=== PATIENT | male | born 1970 | race Caucasian/White ===

== ENCOUNTER 2022-10-28 10:51 | Emergency (ER) | payer OTHER, SELFPAY ==
[2022-10-28 10:54] VITALS: BP 143/85; PULSE 68; RESP 18; TEMP 36.8; O2SAT 98; BMI 27.7
--- NOTE | 2022-10-28 11:27 | ED_ITS ---
HPI - Abdominal Pain General Chief Complaint: Abdominal Pain Stated Complaint: ABD PAIN VOMITING Time Seen by Provider: 10/28/22 11:25 Source: patient Mode of arrival: walk-in Limitations: no limitations History of Present Illness HPI narrative: Patient presents to emergency department complaining of constipation. Patient's last bowel movement was on . He states he has changed his diet to eating junk food and has not been drinking enough water. He did not have a bowel movement but he is passing gas. So he started taking MiraLAX yesterday. His taken 3 doses and is passing gas but has not had any relief. He states he was at work and keep one time so they sent him to the emergency department for evaluation. Patient denies any fever, chills, cough, chest, shortness of breath. He denies any abdominal pain. He has not tried any suppositories. He denies any flank pain, hematuria, dysuria. Related Data Home Medications Medication Instructions Recorded Confirmed buprenorphine 8 mg-naloxone 2 mg 1 tab sublingual DAILY 10/28/22 10/28/22 sublingual tablet Allergies Allergy/AdvReac Type Severity Reaction Status Date / Time No Known Drug Allergies Allergy Verified 10/28/22 10:58 Review of Systems ROS Status of ROS 10 or more systems reviewed and unremarkable except as noted in history and below Exam Narrative Exam Narrative: Nurses notes and vital signs reviewed and patient is not hypoxic. General: Nontoxic, Well-appearing and in no apparent distress. Skin: Warm, dry, no pallor noted. No Rash Head: Normocephalic, atraumatic. Neck: Supple, non-tender. Eye: Pupils are equal, round and EOMI. No scleral icterus. Ears, Nose, Mouth, and Throat: TM clear, no posterior oropharynx erythema or nasal mucosal hypertrophy, uvula is mid-line Oral mucosa is moist Cardiovascular: Regular Rate and Rhythm without murmur, gallop or rub. Respiratory: No accessory muscle use or respiratory distress. Lungs are clear to auscultation, no wheezing, rales or rhonchi Chest Wall: no tenderness Back: No midline thoracic or lumbar vertebral tenderness. No CVA tenderness Musculoskeletal: normal ROM, no calf or popliteal tenderness, no lower extremity edema/swelling GI: Abdomen is soft, non-distended. Normal bowel sounds. No masses appreciated. No tenderness to palpation. No rebound, guarding, or rigidity noted. Neurological: A&O x4. No cranial nerve dysfunction observed. No truncal ataxia. Moves all extremities. Sensation intact. Psychiatric: Cooperative and interactive. Normal mood and affect. Constitutional Vital Signs, click to edit/add: Last Vital Signs Temp 98.2 F 10/28/22 10:54 Pulse 68 10/28/22 10:54 Resp 18 10/28/22 10:54 BP 143/85 H 10/28/22 10:54 Pulse Ox 98 10/28/22 10:54 O2 Del Method Room Air 10/28/22 10:54 Course Vital Signs Vital signs: Vital Signs Temperature 98.2 F 10/28/22 10:54 Pulse Rate 68 10/28/22 10:54 Respiratory Rate 18 10/28/22 10:54 Blood Pressure 143/85 H 10/28/22 10:54 Pulse Oximetry 98 10/28/22 10:54 Oxygen Delivery Method Room Air 10/28/22 10:54 Temperature 98.2 F 10/28/22 10:54 Pulse Rate 68 10/28/22 10:54 Respiratory Rate 18 10/28/22 10:54 Blood Pressure 143/85 H 10/28/22 10:54 Pulse Oximetry 98 10/28/22 10:54 Oxygen Delivery Method Room Air 10/28/22 10:54 MDM - Abdominal Pain MDM Narrative Medical decision making narrative: Discussed with patient to continue MiraLAX. He is to take Dulcolax and use a suppository. He states that he wouldn't do that at home. He is declining an suppository or enema in the emergency department. Patient is given mag citrate to take at home. He states he will go and buy some suppositories and primary home. Patient's abdomen is benign and nonsurgical. He is stable for outpatient follow-up and treatment. X-ray reviewed. At this time the patient is without objective evidence of an acute process requiring hospitalization or inpatient management. The patient has remained hem odynamically stable. No additional indication for emergent studies at this time. I answered all questions. Discussed discharge instructions including standard anticipatory guidance and what should prompt a return to the emergency department, including if they get worse are not getting better or develops any new or concerning symptoms. I've given them specific time frame in which to follow-up, and who to follow-up with. The patient demonstrates understanding. Patient is nontoxic and stable for discharge with outpatient follow-up. This note was created with the assistance of a speech recognition program. Although the intention is to generate documents that actually reflects the content of the visit, no guarantees can be provided that every mistake has been identified and corrected by editing. Differential Diagnosis Differential diagnosis: Likely constipation and small bowel obstruction Discharge Plan Discharge Chief Complaint: Abdominal Pain Clinical Impression: Constipation Patient Disposition: Home, Self-Care Time of Disposition Decision: 11:53 Condition: Good Mode of Transportation: Private Vehicle Prescriptions / Home Meds: No Action buprenorphine-naloxone 8-2 mg tablet, sublingual 1 tab SUBLINGUAL DAILY Instructions: Constipation (ED) Stand Alone Forms: Portal Instructions Referrals: Physician,Non-Staff, MD [Primary Care Provider] - 1 week Discharge Date/Time: 10/28/22 12:07
--- NOTE | 2022-10-28 11:35 | XR_ITS ---
The [address] [address] Patient Name: SANDRINE BURTON MRN: [id number] date: 1970 Sex: M Assigned Patient Location: ED.MAIN Current Patient Location: ED.MAIN Accession/Order Number: [id number] Exam Date: 10/28/2022 11:25 Report Date: 10/28/2022 11:57 At the request of: OSORIO BRAVO Procedure: XR acute abdomen series EXAMINATION: XR acute abdomen series HISTORY: constipation COMPARISON: 08/12/2021 FINDINGS: LUNGS: No infiltrate, pneumothorax, or pleural effusion. MEDIASTINUM: No abnormal widening. BOWEL GAS PATTERN: Non-obstructed. Moderate amount of stool within the colon FREE AIR: None. CALCIFICATIONS: None significant. BONES: No fracture or visible bone lesion. OTHER: Negative. XR/XR acute abdomen series IMPRESSION: Clear lungs Moderate stool in the colon Electronically authenticated by: SANDRINE MURRAY Date: 10/28/2022 11:57
[2022-10-28] MEDS: MAGNESIUM CITRATE 296 ML SOLUTION PO (11:59)
== END 2022-10-28 12:07 | disposition home or self-care (01) ==
PROVIDERS: Emergency Provider Emergency Medicine
DX: K59.00 Constipation, unspecified (principal)
CPT/HCPCS: 74022; 99283

== ENCOUNTER 2022-12-08 20:10 | Emergency (ER) | payer OTHER, SELFPAY ==
[2022-12-08 20:14] VITALS: BP 128/84; PULSE 68; RESP 18; TEMP 36.7; O2SAT 99
--- NOTE | 2022-12-08 20:27 | ED.SKABFB1 ---
HPI - Skin/Abscess/Foreign Bdy General Chief complaint: Skin/Abscess/Foreign Body Stated complaint: RASH Time Seen by Provider: 12/08/22 20:17 Source: patient Mode of arrival: walk-in Limitations: no limitations History of Present Illness HPI narrative: patient states allergy to poison sumac. was exposed this weekend while cutting grass. Rash started on his feet and ankles and has spread to his legs and even his back. Similar reaction in the past. No dyspnea or fever or joint swelling MD complaint: Reports rash Related Data Home Medications Medication Instructions Recorded Confirmed buprenorphine 8 mg-naloxone 2 mg 1 tab sublingual DAILY 10/28/22 10/28/22 sublingual tablet Allergies Allergy/AdvReac Type Severity Reaction Status Date / Time No Known Drug Allergies Allergy Verified 10/28/22 10:58 Review of Systems ROS Status of ROS 10 or more systems reviewed and unremarkable except as noted in history and below Exam Constitutional Vital Signs, click to edit/add: Last Vital Signs Temp 98.1 F 12/08/22 20:14 Pulse 68 12/08/22 20:14 Resp 18 12/08/22 20:14 BP 128/84 12/08/22 20:14 Pulse Ox 99 12/08/22 20:14 Common normals: no apparent distress, average body habitus, oriented x3, no limitations, healthy appearing, alert and well nourished Eye Common normals: PERRL, EOMs intact bilaterally and conjunctivae normal Respiratory Common normals: normal respiratory effort, no retractions and no use of accessory muscles Cardio Common normals: regular rate, regular rhythm, S1 normal heart sound and S2 normal heart sound GI Common normals: Normal to inspection, nondistended, normoactive bowel sounds present Extremity Other: diffuse faintly erythematous 1cm papular lesions mild distribution on his lower extremities. More concentrated about his ankles Neuro Common normals: oriented x3, CN's II-XII intact bilaterally, moves all extremities and no focal motor deficits Psych Appearance: grossly normal Course Vital Signs Vital signs: Vital Signs Temperature 98.1 F 12/08/22 20:14 Pulse Rate 68 12/08/22 20:14 Respiratory Rate 18 12/08/22 20:14 Blood Pressure 128/84 12/08/22 20:14 Pulse Oximetry 99 12/08/22 20:14 Temperature 98.1 F 12/08/22 20:14 Pulse Rate 68 12/08/22 20:14 Respiratory Rate 18 12/08/22 20:14 Blood Pressure 128/84 12/08/22 20:14 Pulse Oximetry 99 12/08/22 20:14 MDM - Skin/Abscess/Foreign Bdy MDM Narrative Medical decision making narrative: patient presents with contact dermatitis after exposure to poison sumac to which he does have past allergic reaction. No difficulty breathing or throat tightness. No fever. Similar reaction to poison sumac in the past. Treated with IM solumedrol and discharged home with a prescription for prednisone Discharge Plan Discharge Chief Complaint: Skin/Abscess/Foreign Body Clinical Impression: Contact dermatitis Patient Disposition: Home, Self-Care Prescriptions / Home Meds: No Action buprenorphine-naloxone 8-2 mg tablet, sublingual 1 tab SUBLINGUAL DAILY Instructions: Contact Dermatitis (ED) Additional Instructions: follow up with your doctor in 3-4 days for recheck Stand Alone Forms: Portal Instructions Referrals: Physician,Non-Staff, MD [Primary Care Provider] - 1 week
[2022-12-08] MEDS: METHYLPREDNISOLONE SOD SUCC PF 125 MG/2 ML VIAL IM (20:39)
== END 2022-12-08 20:46 | disposition home or self-care (01) ==
PROVIDERS: Emergency Provider Internal Medicine
DX: L23.7 Allergic contact dermatitis due to plants, except food (principal)
CPT/HCPCS: 96372; 99284; J2930

== ENCOUNTER 2023-01-06 08:14 | Emergency (ER) | payer OTHER, SELFPAY ==
[2023-01-06 08:19] VITALS: BP 133/79; PULSE 59; RESP 20; TEMP 36.7; O2SAT 99; BMI 28.4
--- NOTE | 2023-01-06 08:31 | ED_ITS ---
HPI - General Adult General Chief complaint: Upper Respiratory Infection Stated complaint: FLU LIKE SYMPTOMS Time Seen by Provider: 01/06/23 08:28 Mode of arrival: walk-in History of Present Illness HPI narrative: 52-year-old male presents for a 5-6 day history of cough. He is coughing up yellow phlegm. He took a home Covid test which was negative. He's had body aches all over. he's not had repetitive vomiting and has had no diarrhea. Related Data Home Medications Medication Instructions Recorded Confirmed buprenorphine 8 mg-naloxone 2 mg 1 tab sublingual DAILY 10/28/22 10/28/22 sublingual tablet Previous Rx's Medication Instructions Recorded azithromycin 250 mg tablet See Rx Instructions PO .COMPLEX #6 01/06/23 (Zithromax Z-Jonathan) tabs Allergies Allergy/AdvReac Type Severity Reaction Status Date / Time No Known Drug Allergies Allergy Verified 01/06/23 08:24 Review of Systems ROS Narrative A ten point review of systems is negative except as noted above. PFSH PFSH Social History Smoking status: Current every day smoker Exam Narrative Exam Narrative: Nurses note and vital signs reviewed and patient is not hypoxic. General: The patient appears well and in no apparent distress. Patient is resting comfortably on cart. Skin: Warm, dry, no pallor noted. There is no rash noted. Head: Normocephalic, atraumatic Eye: Normal conjunctiva, no drainage Ears, Nose, Mouth, and Throat: oral mucosa is moist. Nares patent. Cardiovascular: Regular Rate and Rhythm Respiratory: Patient is in no distress, no accessory muscle use, lungs are clear to auscultation, no wheezing, rales or rhonchi Back: non-tender GI: soft and nontender Musculoskeletal: The patient has no evidence of calf tenderness, no pitting edema, symmetrical pulses noted bilaterally Neurological: A&O, normal speech Psychiatric: Cooperative Constitutional Vital Signs, click to edit/add: Last Vital Signs Temp 98.1 F 01/06/23 08:19 Pulse 59 L 01/06/23 08:19 Resp 20 01/06/23 08:19 BP 133/79 01/06/23 08:19 Pulse Ox 99 01/06/23 08:19 O2 Del Method Room Air 01/06/23 08:19 Course Vital Signs Vital signs: Vital Signs Temperature 98.1 F 01/06/23 08:19 Pulse Rate 59 L 01/06/23 08:19 Respiratory Rate 20 01/06/23 08:19 Blood Pressure 133/79 01/06/23 08:19 Pulse Oximetry 99 01/06/23 08:19 Oxygen Delivery Method Room Air 01/06/23 08:19 Temperature 98.1 F 01/06/23 08:19 Pulse Rate 59 L 01/06/23 08:19 Respiratory Rate 20 01/06/23 08:19 Blood Pressure 133/79 01/06/23 08:19 Pulse Oximetry 99 01/06/23 08:19 Oxygen Delivery Method Room Air 01/06/23 08:19 Medical Decision Making MDM Narrative Medical decision making narrative: his workup including chest x-ray and Covid test is negative. He is able to be discharged home. Treatment diagnosis and follow-up were discussed with the patient. Differential Diagnosis Differential Diagnosis: Covid, pneumonia, upper respiratory infection Lab Data Lab results reviewed: Yes I reviewed the patient's lab results Labs: Lab Results 01/06/23 01/06/23 Range/Units 08:39 08:40 WBC 6.5 (4.0-11.0) 10^3/uL RBC 4.42 L (4.70-6.10) 10^6/uL Hgb 13.5 L (14.0-18.0) g/dL Hct 39.0 L (42.0-54.0) % MCV 88.2 (80.0-94.0) fL MCH 30.5 (25.9-34.0) pg MCHC 34.6 (29.9-35.2) g/dL RDW 12.0 (11.0-15.0) % Plt Count 214 (150-450) 10^3/uL MPV 10.1 (9.5-13.5) fL Neut % (Auto) 56.3 (43.0-75.0) % Lymph % (Auto) 31.5 (20.5-60.0) % [place] % (Auto) 7.5 (1.7-12.0) % Eos % (Auto) 3.7 (0.9-7.0) % Baso % (Auto) 0.5 (0.2-2.0) % Neut # (Auto) 3.7 (1.4-6.5) 10^3/uL Lymph # (Auto) 2.1 (1.2-3.8) 10^3/uL [place] # (Auto) 0.5 (0.3-0.8) 10^3/uL Eos # (Auto) 0.2 (0.0-0.7) 10^3/uL Baso # (Auto) 0.0 (0.0-0.1) 10^3/uL Abs Immat Gran (auto) 0.03 (0.00-0.03) 10^3/uL Imm/Tot Granulo (auto) 0.5 (0.0-0.5) % Sodium 139 (136-145) mmol/L Potassium 3.6 (3.5-5.1) mmol/L Chloride 104 (98-107) mmol/L Carbon Dioxide 23.9 (21.0-32.0) mmol/L Anion Gap 14.7 BUN 19.0 H (7.0-18.0) mg/dL Creatinine 1.19 (0.70-1.30) mg/dL Est GFR ( Amer) >60 (>=60) Est GFR (Non-Af Amer) >60 (>=60) BUN/Creatinine Ratio 16.0 Glucose 154 H (74-106) mg/dL Calcium 8.5 (8.5-10.1) mg/dL SARS-CoV-2 (PCR) Negative (NEGATIVE) Imaging Data Chest x-ray: Radiologist's impression: no acute findings Discharge Plan Discharge Chief Complaint: Upper Respiratory Infection Clinical Impression: Upper respiratory infection Patient Disposition: Home, Self-Care Time of Disposition Decision: 10:23 Condition: Good Mode of Transportation: Private Vehicle Prescriptions / Home Meds: New azithromycin [Zithromax Z-Jonathan] 250 mg tablet See Rx Instructions .ROUTE .COMPLEX Qty: 6 0RF Rx Instructions: For 250 mg dose pack: take 500 mg today (day 1), then 250 mg for 4 days (days 2-5) No Action buprenorphine-naloxone 8-2 mg tablet, sublingual 1 tab SUBLINGUAL DAILY Instructions: Upper Respiratory Infection (ED) Stand Alone Forms: Portal Instructions Referrals: Physician,Non-Staff, MD [Primary Care Provider] - 1 week
--- NOTE | 2023-01-06 08:45 | XR_ITS ---
The [address] [address] Patient Name: SANDRINE BURTON MRN: [id number] date: 1970 Sex: M Assigned Patient Location: ER Current Patient Location: ER Accession/Order Number: [id number] Exam Date: 01/06/2023 08:40 Report Date: 01/06/2023 09:04 At the request of: ANNIA SINGH Procedure: XR chest 1V EXAM: XR chest 1V HISTORY: . cough . COMPARISON: None. TECHNIQUE: Single view of the chest FINDINGS: Heart and vascularity are unremarkable. Lungs are free of focal infiltrates. Costophrenic angles were excluded on today's exam. Old healed rib fractures are noted on the right. XR/XR chest 1V IMPRESSION: No acute heart or lung disease identified. Electronically authenticated by: SANDRINE LOPEZ Date: 01/06/2023 09:04
[2023-01-06 08:54] LABS: Basophils Percent Auto 0.5 % (0.2-2.0); Eosinophils Absolute Auto 0.2 10^3/uL (0.0-0.7); Eosinophils Percent Auto 3.7 % (0.9-7.0); Hemoglobin 13.5 g/dL (14.0-18.0); Immature Granulocytes Abs Auto 0.03 10^3/uL (0.00-0.03); Immature Granulocytes Pct Auto 0.5 % (0.0-0.5); Lymphocytes Absolute Auto 2.1 10^3/uL (1.2-3.8); Lymphocytes Percent Auto 31.5 % (20.5-60.0); Mean Corpuscular HGB Conc 34.6 g/dL (29.9-35.2); Mean Corpuscular Hemoglobin 30.5 pg (25.9-34.0); Mean Corpuscular Volume 88.2 fL (80.0-94.0); Mean Platelet Volume 10.1 fL (9.5-13.5); Monocytes Absolute Auto 0.5 10^3/uL (0.3-0.8); Monocytes Percent Auto 7.5 % (1.7-12.0); Neutrophils Absolute Auto 3.7 10^3/uL (1.4-6.5); Neutrophils Percent Auto 56.3 % (43.0-75.0); Platelet Count 214 10^3/uL (150-450); Red Blood Count 4.42 10^6/uL (4.70-6.10); White Blood Count 6.5 10^3/uL (4.0-11.0)
[2023-01-06 09:23] LABS: Anion Gap 14.7; Calcium 8.5 mg/dL (8.5-10.1); Carbon Dioxide 23.9 mmol/L (21.0-32.0); Chloride 104 mmol/L (98-107); Estimated GFR (African America >60 (>=60); Estimated GFR (Non-African Ame >60 (>=60); Glucose 154 mg/dL (74-106); Potassium 3.6 mmol/L (3.5-5.1); Sodium 139 mmol/L (136-145)
[2023-01-06 10:16] LABS: SARS-CoV-2 Ag NEGATIVE (NEGATIVE)
[2023-01-06 15:09] LABS: SARS-CoV-2 NAA NOT DETECTED (NOT DETECTE)
== END 2023-01-06 10:32 | disposition home or self-care (01) ==
PROVIDERS: Emergency Provider Emergency Medicine
DX: J06.9 Acute upper respiratory infection, unspecified (principal); F17.210 Nicotine dependence, cigarettes, uncomplicated
CPT/HCPCS: 36415; 71045; 80048; 85025; 87635; 87811; 99284; U0003

== ENCOUNTER 2023-06-27 23:07 | Emergency (ER) | payer OTHER, SELFPAY ==
[2023-06-27 23:10] VITALS: BP 153/102; PULSE 71; RESP 18; TEMP 36.8; O2SAT 97; BMI 29.5
[2023-06-27 23:15] VITALS: PULSE 66
--- NOTE | 2023-06-27 23:23 | PC.NURSE ---
Pain left chest under left axilla.
--- NOTE | 2023-06-27 23:24 | ED.CHESTPAI1 ---
HPI - Chest Pain General Chief Complaint: Chest Pain Stated Complaint: chest pain Time Seen by Provider: 06/27/23 23:11 Source: patient Mode of arrival: walk-in Limitations: no limitations History of Present Illness HPI narrative: presents complaining of chest pain on and off over the past couple of hours. mid axillary chest pain. Daily smoker and also history of cocaine use. last use of cocaine yesterday. No associated nausea or vomiting. Became concerned tonight because the pain would not let up. It is now easing up. states level 4/10. Under increased stress as his mother is ill Related Data Home Medications ?Medication ?Instructions ?Recorded ?Confirmed buprenorphine 8 mg-naloxone 2 mg 1 tab sublingual DAILY 10/28/22 06/27/23 sublingual tablet Allergies Allergy/AdvReac Type Severity Reaction Status Date / Time No Known Drug Allergies Allergy Verified 06/27/23 23:14 Review of Systems ROS Status of ROS 10 or more systems reviewed and unremarkable except as noted in history and below [facility] Social History Smoking status: Current every day smoker Exam Constitutional Vital Signs, click to edit/add: Last Vital Signs Temp 98.3 F 06/27/23 23:10 Pulse 63 06/28/23 02:11 Resp 14 06/28/23 02:11 BP 97/53 06/28/23 02:11 Pulse Ox 95 06/28/23 02:11 O2 Del Method Room Air 06/28/23 02:11 Common normals: no apparent distress, average body habitus, oriented x3, no limitations, healthy appearing, alert and well nourished [facility] Common normals: normocephalic and head/scalp atraumatic Eye Common normals: PERRL, EOMs intact bilaterally and conjunctivae normal Respiratory Common normals: normal respiratory effort, no retractions, no use of accessory muscles and clear to auscultation bilaterally Cardio Common normals: regular rate, regular rhythm, S1 normal heart sound and S2 normal heart sound GI Common normals: Normal to inspection, nondistended, normoactive bowel sounds present, soft to palpation and non-tender Extremity Common normals: normal to inspection and full ROM Neuro Common normals: oriented x3, CN's II-XII intact bilaterally, moves all extremities and no focal motor deficits Psych Appearance: grossly normal Course Vital Signs Vital signs: Vital Signs Temperature 98.3 F 06/27/23 23:10 Pulse Rate 71 06/27/23 23:10 Respiratory Rate 18 06/27/23 23:10 Blood Pressure 153/102 H 06/27/23 23:10 Pulse Oximetry 97 06/27/23 23:10 Oxygen Delivery Method Room Air 06/27/23 23:10 Temperature 98.3 F 06/27/23 23:10 Pulse Rate 63 06/28/23 02:11 Respiratory Rate 14 06/28/23 02:11 Blood Pressure 97/53 06/28/23 02:11 Pulse Oximetry 95 06/28/23 02:11 Oxygen Delivery Method Room Air 06/28/23 02:11 MDM - Chest Pain MDM Narrative Medical decision making narrative: patient presents with complaint of chest pain left midaxillary. sharp stabbing pain. no associated nausea or dyspnea. EKG without acute changes. Serial troponin and d-dimer neg. Patient advised to follow up with his doctor for recheck in 2-3 days. He is to return to ED if pain recurs Lab Data Labs: Lab Results 06/27/23 06/28/23 Range/Units 23:15 02:22 WBC 12.2 H (4.0-11.0) 10^3/uL RBC 4.93 (4.70-6.10) 10^6/uL Hgb 14.8 (14.0-18.0) g/dL Hct 43.9 (42.0-54.0) % MCV 89.0 (80.0-94.0) fL MCH 30.0 (25.9-34.0) pg MCHC 33.7 (29.9-35.2) g/dL RDW 12.1 (11.0-15.0) % Plt Count 242 (150-450) 10^3/uL MPV 10.2 (9.5-13.5) fL Neut % (Auto) 65.1 (43.0-75.0) % Lymph % (Auto) 25.5 (20.5-60.0) % [place] % (Auto) 7.0 (1.7-12.0) % Eos % (Auto) 1.6 (0.9-7.0) % Baso % (Auto) 0.6 (0.2-2.0) % Neut # (Auto) 7.9 H (1.4-6.5) 10^3/uL Lymph # (Auto) 3.1 (1.2-3.8) 10^3/uL [place] # (Auto) 0.9 H (0.3-0.8) 10^3/uL Eos # (Auto) 0.2 (0.0-0.7) 10^3/uL Baso # (Auto) 0.1 (0.0-0.1) 10^3/uL Abs Immat Gran (auto) 0.03 (0.00-0.03) 10^3/uL Imm/Tot Granulo (auto) 0.2 (0.0-0.5) % D-Dimer <0.19 (<=0.59) mg/L FEU Sodium 137 (136-145) mmol/L Potassium 4.2 (3.5-5.1) mmol/L Chloride 103 (98-107) mmol/L Carbon Dioxide 26.5 (21.0-32.0) mmol/L Anion Gap 11.7 BUN 28.0 H (7.0-18.0) mg/dL Creatinine 1.06 (0.70-1.30) mg/dL Est GFR ( Amer) >60 (>=60) Est GFR (Non-Af Amer) >60 (>=60) BUN/Creatinine Ratio 26.4 Glucose 105 (74-106) mg/dL Calcium 8.8 (8.5-10.1) mg/dL Troponin I High Sens 5.3 5.2 (4.0-76.1) pg/mL Discharge Plan Discharge Stand Alone Forms: Portal Instructions Chief Complaint: Chest Pain Clinical Impression: Chest pain Patient Disposition: Home, Self-Care Prescriptions / Home Meds: No Action buprenorphine-naloxone 8-2 mg tablet, sublingual 1 tab SUBLINGUAL DAILY Print Language: [place] Instructions: Chest Pain (ED) Additional Instructions: discontinue cocaine. follow up with your doctor in 2-3 days. Return if pain recurs Referrals: Physician,Non-Staff, MD [Primary Care Provider] - 1 week
--- NOTE | 2023-06-27 23:27 | XR_ITS ---
The [place] [id number] Patient Name: SANDRINE BURTON MRN: [id number] date: 1970 Sex: M Assigned Patient Location: ER Current Patient Location: ER Accession/Order Number: [id number] Exam Date: 06/27/2023 23:59 Report Date: 06/28/2023 01:21 At the request of: LUNA VIVAS Procedure: XR chest 1V EXAM: XR chest 1V HISTORY: chest pain COMPARISON: Chest radiograph dated 01/06/2023. TECHNIQUE: One view of the chest was obtained. FINDINGS: The cardiac silhouette is normal in size. There are left retrocardiac opacities. There is no significant pneumothorax or pleural effusion. No acute osseous abnormality is seen. XR/XR chest 1V IMPRESSION: 1. Left retrocardiac opacities that could represent atelectasis though aspiration changes and/or pneumonia could be present. Electronically authenticated by: Carmine LI Date: 06/28/2023 01:21
--- NOTE | 2023-06-27 23:27 | ECG_ITS ---
The [facility] Test Date: 2023-06-27 Pat Name: SANDRINE BURTON Department: Room: - Gender: Male [employer]: : 1970 Requested By: [id number] Order Number: [id number] Reading MD: MARLENY GREENE Measurements Intervals [place] Rate: 66 P: 65 [place]: 234 QRS: 61 QRSD: 86 T: 45 QT: 394 QTc: 408 Interpretive Statements 1100 Sinus rhythm 2231 First degree AV block 2420 RSR (QR) in lead V1/V2, consistent with right ventricular conduction delay 9150 abnormal ECG Compared to ECG 08/12/2021 05:34:01 No significant changes Electronically Signed On 06-28-2023 6:50:30 EDT by MARLENY GREENE
[2023-06-27 23:33] LABS: Basophils Absolute Auto 0.1 10^3/uL (0.0-0.1); Basophils Percent Auto 0.6 % (0.2-2.0); Eosinophils Absolute Auto 0.2 10^3/uL (0.0-0.7); Eosinophils Percent Auto 1.6 % (0.9-7.0); Hematocrit 43.9 % (42.0-54.0); Hemoglobin 14.8 g/dL (14.0-18.0); Immature Granulocytes Abs Auto 0.03 10^3/uL (0.00-0.03); Immature Granulocytes Pct Auto 0.2 % (0.0-0.5); Lymphocytes Absolute Auto 3.1 10^3/uL (1.2-3.8); Lymphocytes Percent Auto 25.5 % (20.5-60.0); Mean Corpuscular HGB Conc 33.7 g/dL (29.9-35.2); Mean Platelet Volume 10.2 fL (9.5-13.5); Monocytes Absolute Auto 0.9 10^3/uL (0.3-0.8); Neutrophils Absolute Auto 7.9 10^3/uL (1.4-6.5); Neutrophils Percent Auto 65.1 % (43.0-75.0); Platelet Count 242 10^3/uL (150-450); Red Blood Count 4.93 10^6/uL (4.70-6.10); Red Cell Distribution Width 12.1 % (11.0-15.0); White Blood Count 12.2 10^3/uL (4.0-11.0)
[2023-06-27 23:45] LABS: D Dimer <0.19 mg/L FEU (<=0.59)
[2023-06-27 23:53] LABS: Anion Gap 11.7; BUN Creatinine Ratio 26.4; Calcium 8.8 mg/dL (8.5-10.1); Carbon Dioxide 26.5 mmol/L (21.0-32.0); Chloride 103 mmol/L (98-107); Estimated GFR (African America >60 (>=60); Estimated GFR (Non-African Ame >60 (>=60); Glucose 105 mg/dL (74-106); Potassium 4.2 mmol/L (3.5-5.1); Sodium 137 mmol/L (136-145); Troponin I High Sensitivity 5.3 pg/mL (4.0-76.1)
[2023-06-27 23:54] VITALS: BP 129/78; PULSE 78; RESP 18; O2SAT 97
[2023-06-28 01:25] VITALS: BP 124/78; PULSE 62; RESP 14; O2SAT 95
[2023-06-28 02:11] VITALS: BP 97/53; PULSE 63; RESP 14; O2SAT 95
[2023-06-28 02:55] LABS: Troponin I High Sensitivity 5.2 pg/mL (4.0-76.1)
== END 2023-06-28 03:27 | disposition home or self-care (01) ==
PROVIDERS: Emergency Provider Internal Medicine
DX: R07.9 Chest pain, unspecified (principal); F17.210 Nicotine dependence, cigarettes, uncomplicated; Z79.899 Other long term (current) drug therapy
CPT/HCPCS: 36415; 71045; 80048; 84484; 85025; 85378; 93005; 99285